=== PATIENT | female | born 1940 | race Caucasian/White ===

== ENCOUNTER 2016-12-02 11:57 | Outpatient (CLI) ==
[2016-12-02 12:56] LABS: BASOPHILS % (AUTO) 0.5 % (0.0-3.0); EOSINOPHILS # (AUTO) 0.1 K/ul (0.0-0.7); EOSINOPHILS % (AUTO) 2.2 % (0.0-7.0); HEMATOCRIT 39.5 % (37.0-47.0); HEMOGLOBIN 12.5 g/dl (12.0-16.0); IMMATURE GRANULOCYTE % (AUTO) 0.2 % (0.0-5.0); LYMPHOCYTES % (AUTO) 23.5 (10.0-50.0); MEAN CORPUSCULAR HEMOGLOBIN 27.5 pg (27.0-31.0); MEAN CORPUSCULAR HGB CONC 31.6 (31.8-35.4); MEAN CORPUSCULAR VOLUME 86.8 fl (81.0-99.0); MONOCYTES # (AUTO) 0.4 K/uL (0.4-2.0); MONOCYTES % (AUTO) 10.1 (0-10); NEUTROPHILS # (AUTO) 2.6 K/ul (2.0-6.9); NEUTROPHILS % (AUTO) 63.5; PLATELET COUNT 267 10^3/uL (140-440); RED BLOOD COUNT 4.55 10^6/ul (4.20-5.40); WHITE BLOOD COUNT 4.05 K/ul (4.6-10.2)
[2016-12-02 12:59] LABS: BILIRUBIN,URINE Negative (NEGATIVE); KETONES,URINE Negative (NEGATIVE); LEUKOCYTE ESTERASE ,URINE 1+ (NEGATIVE); NITRITE,URINE Positive (NEGATIVE); PROTEIN,URINE Trace (NEGATIVE); URINE, BLOOD Trace-intact (NEGATIVE)
[2016-12-02 13:00] LABS: ADD URINE MICROSCOPIC YES
[2016-12-02 13:01] LABS: BACTERIA,URINE 3+ (NOT PRESENT)
[2016-12-02 13:15] LABS: ALBUMIN 3.8 g/dL (3.4-5.0); ALBUMIN/GLOBULIN RATIO 1.03; ANION GAP 15.6; BILIRUBIN,TOTAL 0.53 mg/dL (0.00-1.20); BUN/CREATININE RATIO 20.32; CALCIUM 9.9 mg/dL (8.2-10.2); CHOL/HDL RATIO 5.3 (4.5-5.5); CREATININE 1.23 mg/dL (0.60-1.30); POTASSIUM 4.6 mmol/L (3.5-5.10); TOTAL PROTEIN 7.5 g/dL (5.8-8.1)
== END 2016-12-02 11:58 | disposition home or self-care (01) ==
LOC: LAB 11:57
PROVIDERS: ATTEND General Practice
DX: E11.9 Type 2 diabetes mellitus without complications (principal); I10 Essential (primary) hypertension; N18.3 Chronic kidney disease, stage 3 (moderate); E78.4 Other hyperlipidemia; D64.9 Anemia, unspecified; Z79.899 Other long term (current) drug therapy
CPT/HCPCS: 36415; 80053; 80061; 81001; 83036; 85025; 87086; 87186

== ENCOUNTER 2016-12-16 13:01 | Outpatient (CLI) ==
--- NOTE | 2016-12-17 08:49 | MAMMO ---
EXAM: Bilateral digital screening mammogram History: Screening Comparison: Bilateral mammogram 07/27/2013 Findings: MLO and CC views of bilateral breasts demonstrate predominately fatty replaced breast pare nchyma. Stable benign bilateral vascular calcifications. There are no dominant masses and no suspi cious microcalcifications. No architectural distortions Impression: Benign stable mammogram. Recommend followup routine screening mammography in 1 year. BIRADS 2
== END 2016-12-16 13:02 | disposition home or self-care (01) ==
LOC: RAD 13:01
PROVIDERS: ATTEND General Practice
DX: Z12.31 Encounter for screening mammogram for malignant neoplasm of breast (principal)

== ENCOUNTER 2017-03-10 11:44 | Outpatient (CLI) | payer OTHER ==
[2017-03-10 12:59] LABS: BASOPHILS % (AUTO) 0.7 % (0.0-3.0); EOSINOPHILS # (AUTO) 0.1 K/ul (0.0-0.7); EOSINOPHILS % (AUTO) 2.4 % (0.0-7.0); HEMATOCRIT 37.3 % (37.0-47.0); HEMOGLOBIN 12.4 g/dl (12.0-16.0); IMMATURE GRANULOCYTE % (AUTO) 0.2 % (0.0-5.0); LYMPHOCYTES # (AUTO) 0.9 K/uL (0.60-3.4); LYMPHOCYTES % (AUTO) 19.8 (10.0-50.0); MEAN CORPUSCULAR HGB CONC 33.2 (31.8-35.4); MEAN CORPUSCULAR VOLUME 90.1 fl (81.0-99.0); MONOCYTES # (AUTO) 0.5 K/uL (0.4-2.0); MONOCYTES % (AUTO) 10.7 (0-10); NEUTROPHILS % (AUTO) 66.2; PLATELET COUNT 295 10^3/uL (140-440); RED BLOOD COUNT 4.14 10^6/ul (4.20-5.40)
[2017-03-10 13:12] LABS: ALBUMIN 3.8 g/dL (3.4-5.0); ALBUMIN/GLOBULIN RATIO 1.09; BILIRUBIN,TOTAL 0.58 mg/dL (0.00-1.20); BUN/CREATININE RATIO 17.21; CALCIUM 10.1 mg/dL (8.2-10.2); CHOL/HDL RATIO 3.6 (4.5-5.5); CREATININE 1.22 mg/dL (0.60-1.30); TOTAL PROTEIN 7.3 g/dL (5.8-8.1)
[2017-03-10 13:28] LABS: BILIRUBIN,URINE Negative (NEGATIVE); KETONES,URINE Negative (NEGATIVE); LEUKOCYTE ESTERASE ,URINE Trace (NEGATIVE); NITRITE,URINE Negative (NEGATIVE); PH,URINE 5.5 (5-9); PROTEIN,URINE Negative (NEGATIVE); URINE, BLOOD Negative (NEGATIVE)
[2017-03-10 13:31] LABS: ADD URINE MICROSCOPIC YES
== END 2017-03-10 11:45 | disposition home or self-care (01) ==
LOC: LAB 11:44
PROVIDERS: ATTEND General Practice
DX: E78.4 Other hyperlipidemia (principal); I10 Essential (primary) hypertension; E11.9 Type 2 diabetes mellitus without complications; C50.919 Malignant neoplasm of unspecified site of unspecified female breast; N18.3 Chronic kidney disease, stage 3 (moderate); D63.1 Anemia in chronic kidney disease
CPT/HCPCS: 36415; 80053; 80061; 81001; 83036; 85025

== ENCOUNTER 2017-04-01 08:09 | Outpatient (CLI) ==
[2017-04-01 08:48] LABS: ALBUMIN 3.8 g/dL (3.4-5.0); ANION GAP 13.2; BUN/CREATININE RATIO 18.58; CALCIUM 9.7 mg/dL (8.2-10.2); CREATININE 1.13 mg/dL (0.60-1.30); PHOSPHORUS 3.6 mg/dL (2.8-4.1); POTASSIUM 4.2 mmol/L (3.5-5.10)
== END 2017-04-01 08:10 | disposition home or self-care (01) ==
LOC: LAB 08:09
PROVIDERS: ATTEND General Practice
DX: I12.9 Hypertensive chronic kidney disease with stage 1 through stage 4 chronic kidney disease, or unspecified chronic kidney disease (principal); E11.22 Type 2 diabetes mellitus with diabetic chronic kidney disease; N18.3 Chronic kidney disease, stage 3 (moderate); Z79.899 Other long term (current) drug therapy
CPT/HCPCS: 36415; 80069; 82150; 83036; 83690

== ENCOUNTER 2017-04-03 12:44 | Outpatient (CLI) ==
[2017-04-03 13:42] LABS: AMYLASE 126 U/L (25-115); LIPASE 92 U/L (8-78)
== END 2017-04-03 12:45 | disposition home or self-care (01) ==
LOC: LAB 12:44
PROVIDERS: ATTEND General Practice
DX: R74.8 Abnormal levels of other serum enzymes (principal)
CPT/HCPCS: 36415; 82150; 83690

== ENCOUNTER 2017-04-07 07:43 | Outpatient (CLI) ==
[2017-04-07 08:24] LABS: AMYLASE 95 U/L (25-115); LIPASE 71 U/L (8-78)
== END 2017-04-07 07:44 | disposition home or self-care (01) ==
LOC: NONPT 07:43
PROVIDERS: ATTEND General Practice
DX: R74.8 Abnormal levels of other serum enzymes (principal)
CPT/HCPCS: 82150; 83690

== ENCOUNTER 2017-04-29 08:17 | Outpatient (CLI) ==
[2017-04-29 08:56] LABS: AMYLASE 135 U/L (25-115); LIPASE 109 U/L (8-78)
== END 2017-04-29 08:18 | disposition home or self-care (01) ==
LOC: LAB 08:17
PROVIDERS: ATTEND General Practice
DX: R74.8 Abnormal levels of other serum enzymes (principal)
CPT/HCPCS: 36415; 82150; 83690

== ENCOUNTER 2017-05-13 08:34 | Outpatient (CLI) ==
[2017-05-13 09:10] LABS: AMYLASE 94 U/L (25-115); LIPASE 65 U/L (8-78)
== END 2017-05-13 08:35 | disposition home or self-care (01) ==
LOC: LAB 08:34
PROVIDERS: ATTEND General Practice
DX: E11.9 Type 2 diabetes mellitus without complications (principal); R74.8 Abnormal levels of other serum enzymes
CPT/HCPCS: 36415; 82150; 83690

== ENCOUNTER 2017-05-27 08:33 | Outpatient (CLI) ==
[2017-05-27 09:24] LABS: AMYLASE 172 U/L (25-115); LIPASE 280 U/L (8-78)
== END 2017-05-27 08:34 | disposition home or self-care (01) ==
LOC: LAB 08:33
PROVIDERS: ATTEND General Practice
DX: R74.8 Abnormal levels of other serum enzymes (principal)
CPT/HCPCS: 36415; 82150; 83690

== ENCOUNTER 2017-06-03 16:43 | Outpatient (CLI) ==
[2017-06-03 17:11] LABS: AMYLASE 105 U/L (25-115); LIPASE 61 U/L (8-78)
== END 2017-06-03 16:44 | disposition home or self-care (01) ==
LOC: LAB 16:43
PROVIDERS: ATTEND Emergency Medicine
DX: R74.8 Abnormal levels of other serum enzymes (principal)
CPT/HCPCS: 36415; 82150; 83690

== ENCOUNTER 2017-09-02 07:55 | Outpatient (CLI) ==
[2017-09-02 08:19] LABS: BASOPHILS % (AUTO) 0.4 % (0.0-3.0); EOSINOPHILS # (AUTO) 0.1 K/ul (0.0-0.7); EOSINOPHILS % (AUTO) 2.9 % (0.0-7.0); HEMATOCRIT 33.8 % (37.0-47.0); HEMOGLOBIN 11.2 g/dl (12.0-16.0); IMMATURE GRANULOCYTE % (AUTO) 0.2 % (0.0-5.0); LYMPHOCYTES # (AUTO) 0.9 K/uL (0.60-3.4); LYMPHOCYTES % (AUTO) 20.2 (10.0-50.0); MEAN CORPUSCULAR HEMOGLOBIN 30.2 pg (27.0-31.0); MEAN CORPUSCULAR HGB CONC 33.1 (31.8-35.4); MEAN CORPUSCULAR VOLUME 91.1 fl (81.0-99.0); MONOCYTES # (AUTO) 0.4 K/uL (0.4-2.0); MONOCYTES % (AUTO) 9.4 (0-10); NEUTROPHILS % (AUTO) 66.9; PLATELET COUNT 293 10^3/uL (140-440); RED BLOOD COUNT 3.71 10^6/ul (4.20-5.40); WHITE BLOOD COUNT 4.45 K/ul (4.6-10.2)
[2017-09-02 08:28] LABS: BILIRUBIN,URINE Negative (NEGATIVE); KETONES,URINE Negative (NEGATIVE); LEUKOCYTE ESTERASE ,URINE 1+ (NEGATIVE); NITRITE,URINE Negative (NEGATIVE); PROTEIN,URINE Negative (NEGATIVE); URINE, BLOOD Trace-intact (NEGATIVE)
[2017-09-02 08:29] LABS: ADD URINE MICROSCOPIC YES
[2017-09-02 08:36] LABS: ALBUMIN 3.4 g/dL (3.4-5.0); ALBUMIN/GLOBULIN RATIO 0.92; ANION GAP 13.5; BILIRUBIN,TOTAL 0.44 mg/dL (0.00-1.20); BUN/CREATININE RATIO 15.25; CALCIUM 9.5 mg/dL (8.2-10.2); CHOL/HDL RATIO 5.6 (4.5-5.5); CREATININE 1.18 mg/dL (0.60-1.30); POTASSIUM 4.5 mmol/L (3.5-5.10); TOTAL PROTEIN 7.1 g/dL (5.8-8.1)
[2017-09-02 08:43] LABS: BACTERIA,URINE 2+ (NOT PRESENT)
== END 2017-09-02 07:56 | disposition home or self-care (01) ==
LOC: LAB 07:55
PROVIDERS: ATTEND General Practice
DX: E11.9 Type 2 diabetes mellitus without complications (principal); I10 Essential (primary) hypertension; E78.4 Other hyperlipidemia; D64.9 Anemia, unspecified; R74.8 Abnormal levels of other serum enzymes; Z79.899 Other long term (current) drug therapy
CPT/HCPCS: 36415; 80053; 80061; 81001; 83036; 85025

== ENCOUNTER 2018-01-06 07:53 | Outpatient (CLI) | payer OTHER | END 2018-01-06 07:54 | disposition home or self-care (01) | LOC: LAB 07:53 | PROVIDERS: ATTEND General Practice | DX: R74.8 Abnormal levels of other serum enzymes (principal); N18.3 Chronic kidney disease, stage 3 (moderate); E11.9 Type 2 diabetes mellitus without complications; I10 Essential (primary) hypertension | CPT/HCPCS: 36415; 80053; 80061; 81001; 82150; 83036; 83690; 85025; 87086 ==

== ENCOUNTER 2018-05-12 08:01 | Outpatient (CLI) | END 2018-05-12 08:02 | disposition home or self-care (01) | LOC: LAB 08:01 | PROVIDERS: ATTEND General Practice | DX: E78.5 Hyperlipidemia, unspecified (principal); I10 Essential (primary) hypertension; E11.9 Type 2 diabetes mellitus without complications; D64.9 Anemia, unspecified; N18.3 Chronic kidney disease, stage 3 (moderate); Z79.899 Other long term (current) drug therapy | CPT/HCPCS: 36415; 80053; 80061; 81001; 83036; 85025; 87086 ==

== ENCOUNTER 2018-06-04 16:49 | Emergency (ER) ==
[2018-06-04 17:10] VITALS: BP 198/92; TEMP 98; BMI 31.1
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
[2018-06-04] MEDS ORDERED: MORPHINE 2 MG/ML SYRINGE IVP STA (17:57)
[2018-06-04] MEDS ORDERED: ZOFRAN 4 MG/2 ML IVP STA (17:58)
== END 2018-06-04 19:45 | disposition short-term general hospital (02) ==
LOC: ED 16:49
DX: S81.811A Laceration without foreign body, right lower leg, initial encounter (principal); S99.922A Unspecified injury of left foot, initial encounter; S99.912A Unspecified injury of left ankle, initial encounter; V09.9XXA Pedestrian injured in unspecified transport accident, initial encounter
CPT/HCPCS: 36415; 80053; 85025; 96374; 96375; 99285

== ENCOUNTER 2018-10-05 09:11 | Outpatient (CLI) | payer OTHER | END 2018-10-05 09:12 | disposition home or self-care (01) | LOC: LAB 09:11 | PROVIDERS: ATTEND General Practice | DX: E11.9 Type 2 diabetes mellitus without complications (principal); I10 Essential (primary) hypertension; N18.3 Chronic kidney disease, stage 3 (moderate); D64.9 Anemia, unspecified; E78.5 Hyperlipidemia, unspecified; I73.9 Peripheral vascular disease, unspecified; I87.2 Venous insufficiency (chronic) (peripheral) | CPT/HCPCS: 36415; 80069; 83036 ==

== ENCOUNTER 2018-12-27 10:36 | Outpatient (CLI) | END 2018-12-27 10:37 | disposition home or self-care (01) | LOC: LAB 10:36 | PROVIDERS: ATTEND General Practice | DX: E78.5 Hyperlipidemia, unspecified (principal); D64.9 Anemia, unspecified; E11.9 Type 2 diabetes mellitus without complications; N18.3 Chronic kidney disease, stage 3 (moderate) | CPT/HCPCS: 36415; 80053; 80061; 81001; 85025 ==

== ENCOUNTER 2018-12-29 15:57 | Outpatient (CLI) | payer OTHER | END 2018-12-29 15:58 | disposition home or self-care (01) | LOC: RHC-LAB 15:57 | PROVIDERS: ATTEND General Practice | DX: E11.9 Type 2 diabetes mellitus without complications (principal) | CPT/HCPCS: 36415; 83037 ==

== ENCOUNTER 2018-12-31 09:25 | Outpatient (CLI) ==
--- NOTE | 2018-12-31 10:02 | MAMMO ---
EXAM: Digital screening mammogram with tomosynthesis HISTORY: Screening COMPARISON: 12/16/2016 FINDINGS: Digital MLO and CC views of the right and left breast were performed. Tomosynthesis was performed. Computer aided detection utilized. There are scattered fibroglandular densities. There is no evidence for mass, asymmetry, distortion, or suspicious calcifications in either breast. IMPRESSION: 1. No evidence of malignancy in the right or left breast. 2. Annual screening mammogram is recommended in one year. BIRADS category 1, negative examination
== END 2018-12-31 09:26 | disposition home or self-care (01) ==
LOC: RAD 09:25
PROVIDERS: ATTEND General Practice
DX: Z12.31 Encounter for screening mammogram for malignant neoplasm of breast (principal)